=== PATIENT | male | born 1975 | race Caucasian/White ===

== ENCOUNTER 2021-07-13 23:03 | Inpatient (IN) | payer OTHER ==
[~2021-07-13] VITALS: Ht 175.3 cm; Wt 157.6 kg
[2021-07-14 00:57] LABS: BASOPHIL 0.4 % (0-2); EOSINOPHIL 1.1 % (0-5); HCT 42.9 % (42.0-52.0); HGB 13.7 g/dl (13.2-18.0); LYMPHOCYTE 22.4 % (15-48); MCHC 31.9 g/dL (32.0-36.0); MCV 87.7 fL (78.0-100.0); MONOCYTE 8.3 % (0-12); MPV 9.9 fL (6.0-9.5); NEUTROPHIL 67.5 % (41-80); NRBC 0; PLT 327 K/uL (150-400); RBC 4.89 M/uL (4.70-6.00); RDW 14.5 % (11.5-14.0)
[2021-07-14 01:05] LABS: ALBUMIN 3.5 g/dL (3.4-5.0); BILIRUBIN - TOTAL 0.4 mg/dL (0.2-1.0); BUN/CREAT RATIO (CALC) 16.3 RATIO; CREATININE 0.98 mg/dL (0.67-1.17); GLOBULIN (CALCULATION) 3.8 g/dL; POTASSIUM 3.8 mmol/L (3.5-5.1); TOTAL PROTEIN 7.3 g/dL (6.4-8.2)
[2021-07-14 04:33] LABS: BILIRUBIN NEGATIVE (NEGATIVE); BLOOD NEGATIVE Ery/uL (NEGATIVE); CLARITY CLEAR (CLEAR); COLOR YELLOW (YELLOW); GLUCOSE (U) NORMAL (NORMAL); LEUKOCYTES NEGATIVE Leu/uL (NEGATIVE); NITRITE NEGATIVE (NEGATIVE); PROTEIN TRACE (LOW) mg/dL (NEGATIVE); SPECIFIC GRAVITY 1.025 (1.001-1.030); UROBILINOGEN 0.2 mg/dL (0.2-1.0); pH 5.5 (5.0-9.0)
[2021-07-14 04:36] LABS: URINARY WBC RARE
[2021-07-14 04:37] LABS: URINARY RBC RARE
[2021-07-14 07:48] LABS: BUN/CREAT RATIO (CALC) 14.2 RATIO; CREATININE 1.06 mg/dL (0.67-1.17); MAGNESIUM 1.7 mg/dL (1.8-2.4); POTASSIUM 3.8 mmol/L (3.5-5.1)
[2021-07-14 07:55] LABS: CKMB 1.8 ng/mL (0.0-3.6)
[2021-07-14 14:35] LABS: BUN/CREAT RATIO (CALC) 12.7 RATIO; CREATININE 1.02 mg/dL (0.67-1.17); POTASSIUM 3.7 mmol/L (3.5-5.1)
[2021-07-15 03:33] LABS: BASOPHIL 0.3 % (0-2); EOSINOPHIL 2.5 % (0-5); HCT 41.9 % (42.0-52.0); HGB 13.6 g/dl (13.2-18.0); LYMPHOCYTE 20.1 % (15-48); MCH 28.2 pg (25.0-31.0); MCHC 32.5 g/dL (32.0-36.0); MCV 86.7 fL (78.0-100.0); MONOCYTE 11.6 % (0-12); MPV 9.4 fL (6.0-9.5); NEUTROPHIL 65.2 % (41-80); NRBC 0; PLT 295 K/uL (150-400); RBC 4.83 M/uL (4.70-6.00); RDW 14.5 % (11.5-14.0); WBC 7.2 K/uL (4.0-10.5)
[2021-07-15 04:11] LABS: BUN/CREAT RATIO (CALC) 13.6 RATIO; CREATININE 1.03 mg/dL (0.67-1.17); MAGNESIUM 2.1 mg/dL (1.8-2.4); POTASSIUM 3.7 mmol/L (3.5-5.1)
[2021-07-15] MEDS ORDERED: WELLBUTRIN XL150 MG PO (23:34)
[2021-07-15] MEDS ORDERED: ZYRTEC10 MG PO (23:35)
[2021-07-15] MEDS ORDERED: OMEPRAZOLE20 M1 PO (23:37)
--- NOTE | 2021-07-16 02:01 | NUR ---
07/15/21 @ 2048 PT'S HR WENT UP TO 216 SINUS TACH. PT WAS IN THE BATHROOM CHANGING CLOTHES AT THE TIME. I WENT INTO PT'S ROOM, HAD HIM SIT ON THE BED. HE WAS ASYMPTOMATIC, REMAINED FULLY ALERT AND ORIENTED, NO C/O PAIN OR SOA. I HAD THE PT VAGEL DOWN. I CONTACTED PROVIDER FOR FURTHER INSTRUCTION. PT'S HR SPONTANEOUSLY RETURNED TO BASELINE (110 - 120) WITHIN 60-90 SECONDS.
[2021-07-16 06:03] LABS: BASOPHIL 0.5 % (0-2); EOSINOPHIL 2.2 % (0-5); HCT 44.5 % (42.0-52.0); HGB 14.3 g/dl (13.2-18.0); LYMPHOCYTE 18.9 % (15-48); MCH 28.1 pg (25.0-31.0); MCHC 32.1 g/dL (32.0-36.0); MCV 87.4 fL (78.0-100.0); MONOCYTE 12.3 % (0-12); MPV 9.9 fL (6.0-9.5); NEUTROPHIL 65.7 % (41-80); NRBC 0; PLT 321 K/uL (150-400); RBC 5.09 M/uL (4.70-6.00); RDW 14.4 % (11.5-14.0); WBC 7.9 K/uL (4.0-10.5)
[2021-07-16 06:23] LABS: POTASSIUM 3.9 mmol/L (3.5-5.1)
== END 2021-07-16 14:52 | disposition other institution (70) | DRG 280 ==
LOC: FER 23:03 → FOFB 07-14 08:59 → FTCU 07-14 08:59
PROVIDERS: Emergency Medicine; Family Medicine; Internal Medicine Cardiovascular Disease; Nurse Practitioner; ADMIT Internal Medicine
DX: I48.91 Unspecified atrial fibrillation (principal); I50.21 Acute systolic (congestive) heart failure; I21.4 Non-ST elevation (NSTEMI) myocardial infarction; I13.0 Hypertensive heart and chronic kidney disease with heart failure and stage 1 through stage 4 chronic kidney disease, or unspecified chronic kidney disease; Z68.43 Body mass index [BMI] 50.0-59.9, adult; N18.2 Chronic kidney disease, stage 2 (mild); Z20.822 Contact with and (suspected) exposure to COVID-19; R10.9 Unspecified abdominal pain; E78.5 Hyperlipidemia, unspecified; G47.33 Obstructive sleep apnea (adult) (pediatric); E66.01 Morbid (severe) obesity due to excess calories; E83.42 Hypomagnesemia; I42.9 Cardiomyopathy, unspecified; F17.210 Nicotine dependence, cigarettes, uncomplicated; Z90.49 Acquired absence of other specified parts of digestive tract; Z79.899 Other long term (current) drug therapy
CPT/HCPCS: 36415; 71275; 80048; 80053; 80061; 81001; 82553; 83036; 83690; 83735; 83880; 84443; 84484; 85025; 85379; 93005; 96372; C9113; J1650; J1885; J1940; J3475; J3490; J7030; Q9967; U0002